=== PATIENT | male | born 1995 | race Caucasian/White ===

== ENCOUNTER 2023-09-03 14:30 | Emergency (ER) | payer OTHER, SELFPAY ==
--- NOTE | ~2023-09-03 | XR_ITS ---
EXAMINATION: XR SHOULDER, RIGHT CLINICAL INFORMATION: Pain, injury COMPARISON: None available. TECHNIQUE: AP external rotation, Grashey, scapular Y, and axillary views of the right shoulder. FINDINGS: The bones and soft tissues are normal. No fracture. Glenohumeral and acromioclavicular alignment is anatomic with normal joint space. No abnormal soft tissue calcifications. XR/XR shoulder RT min 2V IMPRESSION: No bony abnormality.
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
[2023-09-03 14:41] VITALS: BP 125/73; PULSE 69; RESP 18; TEMP 36.8; O2SAT 97; BMI 26.2
--- NOTE | 2023-09-03 15:45 | PC.NURSE ---
Patient presenting with right shoulder injury that started today while at work. Patient complaining of 5/10 pain and a tingling sensation going down his arm. Patient is alert and oriented and answering questions appropriately.
[2023-09-03 16:20] VITALS: BP 119/75; PULSE 70; RESP 18; O2SAT 98
== END 2023-09-03 17:12 | disposition home or self-care (01) ==
PROVIDERS: Emergency Provider Emergency Medicine
DX: S40.011A Contusion of right shoulder, initial encounter (principal); Y37.90XA Military operations, unspecified, initial encounter; M75.21 Bicipital tendinitis, right shoulder; Y93.89 Activity, other specified; Y92.84 Military training ground as the place of occurrence of the external cause; Y99.0 Civilian activity done for income or pay
CPT/HCPCS: 73030; 99283; 99284

== ENCOUNTER 2023-09-12 15:31 | Emergency (ER) | payer SELFPAY ==
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
[2023-09-12 15:57] VITALS: BP 142/87; PULSE 71; RESP 18; TEMP 36.9; O2SAT 98; BMI 25.8
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
[2023-09-12] MEDS: Ketorolac Tromethamine 30 MG/ML VIAL IM (17:51)
[2023-09-12] MEDS: Lidocaine 4 % Patch ADH..PATCH 1 PATCH TRANSDERMA (17:53)
== END 2023-09-12 19:30 | disposition home or self-care (01) ==
PROVIDERS: Emergency Provider Emergency Medicine
DX: S39.012A Strain of muscle, fascia and tendon of lower back, initial encounter (principal); X58.XXXA Exposure to other specified factors, initial encounter; Y93.9 Activity, unspecified; Y92.9 Unspecified place or not applicable; Y99.9 Unspecified external cause status
CPT/HCPCS: 72100; 96372; 99283; 99284; J1885